=== PATIENT | female | born 1950 | race Caucasian/White ===

== ENCOUNTER 2016-07-24 09:09 | Emergency (ER) | payer MEDICARE, OTHER ==
[~2016-07-24] VITALS: Ht 167.6 cm; Wt 90.7 kg
[~2016-07-24 09:09] MED LIST: ERYT1OIN6 EACHEYE
[2016-07-24] MEDS ORDERED: NAPROXEN 500 MG TABLET PO STA (10:01)
--- NOTE | 2016-07-24 10:02 | RAD ---
Left ankle and left foot radiographs History: Pain from fall today, swelling. Comparison: None. Findings: AP, lateral, and oblique views of the left ankle. Lateral ankle soft tissue swelling is seen. There is a vague, obliquely oriented lucency involving the lateral malleolus, suggesting nondisplaced fracture. Ankle mortise is preserved. Large Achilles tendon insertional enthesophyte is seen. Small plantar calcaneal enthesophyte is present. AP, lateral, and oblique views of the left foot. Acute, slightly displaced obliquely oriented fracture seen involving the medial aspect of the fifth proximal phalanx with intra-articular extent. Mildly comminuted, obliquely oriented, nondisplaced fractures are seen involving the proximal third and fourth metatarsal shafts as well as the base of the third metatarsal extending into the proximal shaft. Mild first MTP degeneration is seen. The dorsal mid foot degeneration is present. Impression: 1. Acute, nondisplaced fracture of the lateral malleolus. 2. Acute fractures of the second through fourth metatarsals and fifth proximal phalanx.
--- NOTE | 2016-07-24 11:16 | PHYS DOC ---
Past Medical History Past Medical History: Constipation, High Cholesterol, Hypothyroid, IBS, Other Additional Past Medical Histor: barrets esophagus Past Surgical History: Tonsillectomy Alcohol Use: None Drug Use: None Adult General Chief Complaint Chief Complaint: ANKLE PROBLEM HPI HPI Patient is a 66 year old female with history of high cholesterol constipation and IBS who presents today with left foot and left ankle pain after falling today. Patient states she was walking down steps when she missed 2 steps and fell. Patient denies any loss of consciousness. Review of Systems Review of Systems Constitutional: Denies fever or chills [] Eyes: Denies change in visual acuity, redness, or eye pain [] Musculoskeletal: Left foot and ankle pain Integument: Denies rash or skin lesions [] Neurologic: Denies headache, focal weakness or sensory changes [] Endocrine: Denies polyuria or polydipsia [] Current Medications Current Medications Current Medications Medications (Trade) Dose Ordered Sig/Saritha Start Time Stop Time Status Last Admin Dose Admin Naproxen (Naprosyn) 500 mg 1X STAT 07/24/16 10:01 07/24/16 10:02 DC 07/24/16 10:07 500 MG Allergies Allergies Allergies Coded Allergies Type Severity Reaction Last Updated Verified No Known Drug Allergies 04/20/16 No Physical Exam Physical Exam Constitutional: Well developed, well nourished, no acute distress, non-toxic appearance. [] HENT: Normocephalic, atraumatic, bilateral external ears normal, oropharynx moist, no oral exudates, nose normal. [] Skin: Warm, dry, no erythema, no rash. [] Back: No tenderness, no CVA tenderness. [] Extremities: Left ankle and foot with mild amount of soft tissue swelling. Tenderness on palpation of the left lateral ankle as well as the top of the left foot. Slight pain to palpation of the base of the fifth metatarsal of the left foot. No navicular pain on the left foot. Limited range of motion to the left falls due to pain. Limited range of motion to the left ankle due to pain. + 2 left pedal pulse. Cap refill less than 2 seconds and left lower extremity. Sensation intact left lower extremity. Neurologic: Alert and oriented X 3, normal motor function, normal sensory function, no focal deficits noted. [] Psychologic: Affect normal, judgement normal, mood normal. [] Current Patient Data Vital Signs Vital Signs Date Time Temp Pulse Resp B/P Pulse Ox O2 Delivery O2 Flow Rate FiO2 07/24/16 09:23 98.2 78 20 139/68 98 Room Air 98.2 EKG EKG [] Radiology/Procedures Radiology/Procedures []PROCEDURE: ANKLE LEFT 3V; FOOT LEFT 3V Left ankle and left foot radiographs History: Pain from fall today, swelling. Comparison: None. Findings: AP, lateral, and oblique views of the left ankle. Lateral ankle soft tissue swelling is seen. There is a vague, obliquely oriented lucency involving the lateral malleolus, suggesting nondisplaced fracture. Ankle mortise is preserved. Large Achilles tendon insertional enthesophyte is seen. Small plantar calcaneal enthesophyte is present. AP, lateral, and oblique views of the left foot. Acute, slightly displaced obliquely oriented fracture seen involving the medial aspect of the fifth proximal phalanx with intra-articular extent. Mildly comminuted, obliquely oriented, nondisplaced fractures are seen involving the proximal third and fourth metatarsal shafts as well as the base of the third metatarsal extending into the proximal shaft. Mild first MTP degeneration is seen. The dorsal mid foot degeneration is present. Impression: 1. Acute, nondisplaced fracture of the lateral malleolus. 2. Acute fractures of the second through fourth metatarsals and fifth proximal phalanx. DICTATED and SIGNED BY: YUNIER VUONG MD DATE: 07/24/16 0955 CC: GREG ROLAND APRN; NON,STAFF; EZE DEL REAL ~ Course & Med Decision Making Course & Med Decision Making Pertinent Labs and Imaging studies reviewed. (See chart for details) Patient is in the ED with left foot and left ankle pain after falling. Left ankle and foot x-rays interpreted by radiologist was noted for an acute nondisplaced fractures of the lateral malleolus as well as acute fracture of the second through fourth metatarsal and fifth proximal phalanx. Consulted with Teodora for , she requested patient be placed in a posterior leg splint, she requested patient not to be on any blood thinners including ibuprofen. She requested patient to follow up with the office. Patient was placed in a posterior leg splint and the radiologic technologist, neurovascular exam done by me is normal, cap refill less than 2 seconds. Ice elevation encouraged. Instructed to call orthopedic doctor today. Dragon Disclaimer Laura Disclaimer This electronic medical record was generated, in whole or in part, using a voice recognition dictation system. Departure Departure Impression: Primary Impression: Fall down steps Additional Impressions: Fx lateral malleolus-closed Metatarsal stress fracture of left foot Disposition: 01 HOME, SELF-CARE Condition: STABLE Referrals: EZE DEL REAL (PCP) ANI DANGELO MD Follow-up with the orthopedic doctor by calling his office today Patient Instructions: Ankle Fracture, Foot Fracture Additional Instructions: You were seen for fractures of the left foot and ankle. Please ice and elevate the extremity. Please call the orthopedic doctor provided today and get a follow -up appointment. Scripts Hydrocodone/Apap 5-325 (Anson 5-325 Tablet)1 Each Tablet1-2 Tab PO Q4-6HRS #20 TAB Prov:GREG ROLAND APRN 07/24/16 Problem Qualifiers Primary Impression: Fall down steps Encounter type: initial encounter Qualified Code: W10.8XXA - Fall (on) (from ) other stairs and steps, initial encounter Additional Impressions: Fx lateral malleolus-closed Encounter type: initial encounter Fracture alignment: nondisplaced Laterality: left Qualified Code: S82.65XA - Nondisplaced fracture of lateral malleolus of left fibula, initial encounter for closed fracture Metatarsal stress fracture of left foot Encounter type: initial encounter Qualified Code: M84.375A - Stress fracture , left foot, initial encounter for fracture GREG ROLAND APRN Jul 24, 2016 11:16
[2016-07-24] MEDS ORDERED: HYDR-971 PO (11:37)
[2016-07-24 11:55] VITALS: BP 162/83
== END 2016-07-24 12:04 | disposition home or self-care (01) ==
LOC: ER 09:09
DX: S82.65XA Nondisplaced fracture of lateral malleolus of left fibula, initial encounter for closed fracture (principal); M84.375A Stress fracture, left foot, initial encounter for fracture; E78.00 Pure hypercholesterolemia, unspecified; E03.9 Hypothyroidism, unspecified; W10.9XXA Fall (on) (from) unspecified stairs and steps, initial encounter; Y93.89 Activity, other specified; Y92.89 Other specified places as the place of occurrence of the external cause; Y99.8 Other external cause status
CPT/HCPCS: 29515; 73610; 73630; 99284-25

== ENCOUNTER 2018-06-30 20:44 | Emergency (ER) | payer MEDICARE, OTHER ==
[~2018-06-30] VITALS: Ht 170.2 cm; Wt 90.7 kg
[~2018-06-30 20:44] MED LIST changes: +HYDR-3164 PO
[2018-06-30 21:31] LABS: BASO % 1 % (0-3); EOS # 0.2 x10^3/uL (0.0-0.7); EOS % 2 % (0-3); HEMATOCRIT 44.3 % (36.0-47.0); HEMOGLOBIN 14.8 g/dL (12.0-15.5); LYMPH # 2.9 x10^3/uL (1.0-4.8); LYMPH % 30 % (24-48); MEAN CORPUSCULAR HEMOGLOBIN 31 pg (25-35); MEAN CORPUSCULAR HGB CONC 33 g/dL (31-37); MEAN CORPUSCULAR VOLUME 92 fL (79-100); MONO % 11 % (0-9); NEUT # 5.5 x10^3uL (1.8-7.7); NEUT % 57 % (31-73); PLATELET COUNT 246 x10^3/uL (140-400); RED BLOOD COUNT 4.84 x10^6/uL (3.50-5.40); RED CELL DISTRIBUTION WIDTH 13.7 % (11.5-14.5); WHITE BLOOD COUNT 9.7 x10^3/uL (4.0-11.0)
[2018-06-30 21:40] LABS: PROTHROMBIN TIME PATIENT 12.1 SEC (11.7-14.0)
[2018-06-30 21:43] LABS: CALCIUM 9.5 mg/dL (8.5-10.1); CREATININE 0.9 mg/dL (0.6-1.0); GFR 61.9; POTASSIUM 3.9 mmol/L (3.5-5.1)
[2018-06-30 21:48] LABS: ALBUMIN 3.5 g/dL (3.4-5.0); ALBUMIN/GLOBULIN RATIO 0.7 (1.0-1.7); MAGNESIUM 2.2 mg/dL (1.8-2.4); TOTAL BILIRUBIN 0.4 mg/dL (0.2-1.0); TOTAL PROTEIN 8.5 g/dL (6.4-8.2)
[2018-06-30 21:56] LABS: CREATINE KINASE 71 U/L (26-192)
[2018-06-30] MEDS ORDERED: ASPIRIN 325 MG TABLET PO ONE (22:00)
--- NOTE | 2018-06-30 22:26 | RAD ---
PROCEDURE: CHEST PA LATERAL CLINICAL INDICATION: PALPITATIONS, CHEST PAIN COMPARISON: None FINDINGS: No pneumothorax identified. Cardiac and mediastinal contours unremarkable. No pulmonary consolidation or acute airspace disease. No acute osseous abnormalities identified. IMPRESSION: No pulmonary consolidation or acute airspace disease. Electronically signed by: Mat Myles DO (06/30/2018 10:24 PM) [facility]
--- NOTE | 2018-06-30 22:57 | PHYS DOC ---
Past Medical History Past Medical History: Constipation, High Cholesterol, Hypothyroid, IBS, Other Additional Past Medical Histor: barrets esophagus Past Surgical History: Tonsillectomy Alcohol Use: None Drug Use: None Adult General Chief Complaint Chief Complaint: Palpitations HPI HPI Patient is a 68 year old [f__sex] who presents with [] Review of Systems Review of Systems Constitutional: Denies fever or chills [] Eyes: Denies change in visual acuity, redness, or eye pain [] HENT: Denies nasal congestion or sore throat [] Respiratory: Denies cough or shortness of breath [] Cardiovascular: No additional information not addressed in HPI [] GI: Denies abdominal pain, nausea, vomiting, bloody stools or diarrhea [] : Denies dysuria or hematuria [] Musculoskeletal: Denies back pain or joint pain [] Integument: Denies rash or skin lesions [] Neurologic: Denies headache, focal weakness or sensory changes [] Endocrine: Denies polyuria or polydipsia [] All other systems were reviewed and found to be within normal limits, except as documented in this note. Current Medications Current Medications Current Medications Medications (Trade) Dose Ordered Sig/Saritha Start Time Stop Time Status Last Admin Dose Admin Aspirin (Charlie Aspirin) 325 mg 1X ONCE 06/30/18 22:00 06/30/18 22:01 DC 06/30/18 21:43 325 MG Allergies Allergies Allergies Coded Allergies Type Severity Reaction Last Updated Verified No Known Drug Allergies 04/20/16 No Physical Exam Physical Exam Constitutional: Well developed, well nourished, no acute distress, non-toxic appearance. [] HENT: Normocephalic, atraumatic, bilateral external ears normal, oropharynx moist, no oral exudates, nose normal. [] Eyes: PERRLA, EOMI, conjunctiva normal, no discharge. [] Neck: Normal range of motion, no tenderness, supple, no stridor. [] Cardiovascular:Heart rate regular rhythm, no murmur [] Lungs & Thorax: Bilateral breath sounds clear to auscultation [] Abdomen: Bowel sounds normal, soft, no tenderness, no masses, no pulsatile masses. [] Skin: Warm, dry, no erythema, no rash. [] Back: No tenderness, no CVA tenderness. [] Extremities: No tenderness, no cyanosis, no clubbing, ROM intact, no edema. [] Neurologic: Alert and oriented X 3, normal motor function, normal sensory function, no focal deficits noted. [] Psychologic: Affect normal, judgement normal, mood normal. [] Current Patient Data Vital Signs Vital Signs Date Time Temp Pulse Resp B/P (MAP) Pulse Ox O2 Delivery O2 Flow Rate FiO2 06/30/18 23:00 88 20 146/68 (94) 98 Room Air 06/30/18 20:44 98.0 98.0 Lab Values Laboratory Tests Test 06/30/18 21:00 White Blood Count 9.7 x10^3/uL (4.0-11.0) Red Blood Count 4.84 x10^6/uL (3.50-5.40) Hemoglobin 14.8 g/dL (12.0-15.5) Hematocrit 44.3 % (36.0-47.0) Mean Corpuscular Volume 92 fL (79-100) Mean Corpuscular Hemoglobin 31 pg (25-35) Mean Corpuscular Hemoglobin Concent 33 g/dL (31-37) Red Cell Distribution Width 13.7 % (11.5-14.5) Platelet Count 246 x10^3/uL (140-400) Neutrophils (%) (Auto) 57 % (31-73) Lymphocytes (%) (Auto) 30 % (24-48) Monocytes (%) (Auto) 11 % (0-9) H Eosinophils (%) (Auto) 2 % (0-3) Basophils (%) (Auto) 1 % (0-3) Neutrophils # (Auto) 5.5 x10^3uL (1.8-7.7) Lymphocytes # (Auto) 2.9 x10^3/uL (1.0-4.8) Monocytes # (Auto) 1.0 x10^3/uL (0.0-1.1) Eosinophils # (Auto) 0.2 x10^3/uL (0.0-0.7) Basophils # (Auto) 0.0 x10^3/uL (0.0-0.2) Prothrombin Time 12.1 SEC (11.7-14.0) Prothrombin Time INR 0.9 (0.8-1.1) PTT 26 SEC (24-38) Sodium Level 141 mmol/L (136-145) Potassium Level 3.9 mmol/L (3.5-5.1) Chloride Level 103 mmol/L (98-107) Carbon Dioxide Level 26 mmol/L (21-32) Anion Gap 12 (6-14) Blood Urea Nitrogen 16 mg/dL (7-20) Creatinine 0.9 mg/dL (0.6-1.0) Estimated GFR (Cockcroft-Gault) 61.9 BUN/Creatinine Ratio 18 (6-20) Glucose Level 110 mg/dL (70-99) H Calcium Level 9.5 mg/dL (8.5-10.1) Magnesium Level 2.2 mg/dL (1.8-2.4) Total Bilirubin 0.4 mg/dL (0.2-1.0) Aspartate Amino Transferase (AST) 26 U/L (15-37) Alanine Aminotransferase (ALT) 27 U/L (14-59) Alkaline Phosphatase 126 U/L (46-116) H Creatine Kinase 71 U/L (26-192) Creatine Kinase MB (Mass) 1.5 ng/mL (0.0-3.6) Creatine Kinase MB Relative Index % (0-4) Troponin I Quantitative < 0.017 ng/mL (0.000-0.055) RT-Vfc-L-Type Natriuretic Peptide 34 pg/mL (0-124) Total Protein 8.5 g/dL (6.4-8.2) H Albumin 3.5 g/dL (3.4-5.0) Albumin/Globulin Ratio 0.7 (1.0-1.7) L Lipase 230 U/L (73-393) Laboratory Tests 06/30/18 21:00 Laboratory Tests 06/30/18 21:00 EKG EKG @2052 Sinus tachycardia at 141bpm, NO ST elevation, wandering baseline to II Radiology/Procedures Radiology/Procedures [] Course & Med Decision Making Course & Med Decision Making Pertinent Labs and Imaging studies reviewed. (See chart for details) [] Dragon Disclaimer Dragon Disclaimer This electronic medical record was generated, in whole or in part, using a voice recognition dictation system. Departure Departure Impression: Primary Impression: Palpitations Disposition: 01 HOME, SELF-CARE Condition: STABLE Referrals: EZE DEL REAL (PCP) FRANCISCO HAYS MD Patient Instructions: Palpitations, Jint-sn-Meax DRAKE,YUNIER Ochoa DO Jun 30, 2018 22:57
[2018-06-30 23:00] VITALS: BP 146/68
--- NOTE | 2018-07-01 07:55 | EKG ---
[facility] [address] [place] [address] Test Date: 2018-06-30 Test Time: 20:52:56 Pat Name: BERNARD GALVEZ Department: Room: Gender: F Primary Care Nurse: : 1950 Requested By: YUNIER DRAKE Order Number: [id number] Reading MD: Ty Han MD Measurements Intervals [place] Rate: 140 P: 116 MT: 122 QRS: -12 QRSD: 78 T: 169 QT: 274 QTc: 421 Interpretive Statements PROBABLE ATRIAL FIBRILLATION WITH RVR NON-SPECIFIC ST/T CHANGES Electronically Signed On 07-02-2018 9:33:15 CDT by Ty Han MD
== END 2018-06-30 23:11 | disposition home or self-care (01) ==
LOC: ER 20:44
DX: R00.2 Palpitations (principal); E78.00 Pure hypercholesterolemia, unspecified; E03.9 Hypothyroidism, unspecified; K58.9 Irritable bowel syndrome, unspecified; Z79.82 Long term (current) use of aspirin
CPT/HCPCS: 36415; 71046; 80053; 82553; 83690; 83735; 83880; 84484; 85025; 85610; 85730; 93005; 99284-25

== ENCOUNTER → 2018-09-14 | Outpatient (CLI) | payer MEDICARE, OTHER ==
--- NOTE | 2018-09-14 13:13 | CARD ---
MR#: [id number] Date of Study: 09/14/2018 Ordering Physician: FRANCISCO HAYS, Referring Physician: FRANCISCO HAYS, Tech: Mojgan Muse [facility] APPROVED REPORT EXAM: Two-dimensional and M-mode echocardiogram with Doppler and color Doppler. Other Information Quality : AverageHR: 64bpm Rhythm : NSRTechnically limited study due to body habitus. INDICATION Atrial Fibrillation 2D DIMENSIONS RVDd2.5 (2.9-3.5cm)Left Atrium(2D)4.0 (1.6-4.0cm) IVSd0.7 (0.7-1.1cm)Aortic Root(2D)2.8 (2.0-3.7cm) LVDd4.7 (3.9-5.9cm)LVOT Diameter2.0 (1.8-2.4cm) PWd0.7 (0.7-1.1cm)LVDs3.4 (2.5-4.0cm) FS (%) 26.1 %SV51.4 ml LVEF(%)51.2 (>50%) M-Mode DIMENSIONS Left Atrium(MM)4.23 (2.5-4.0cm)Aortic Root3.18 (2.2-3.7cm) Aortic Valve AoV Peak Donnell.102.6cm/sAoV VTI24.3cm AO Peak GR.4.2mmHgLVOT Peak Donnell.121.0cm/s AO Mean GR.2mmHgAVA (VMAX)3.65cm2 ANETA (VTI)3.50cm2 Mitral Valve MV E Xhjphvht94.1cm/sMV DECEL CEPM226ju MV A Xkjlhlnq80.0cm/sE/A Ratio0.9 Pulmonary Valve PV Peak Lymmzrxa58.9cm/s Tricuspid Valve TR P. Gieszuxk571zd/sRAP FTBZGZUL9vjAn TR Peak Gr.98jwEdFRDJ66zsSd LEFT VENTRICLE The left ventricle is normal size. There is normal left ventricular wall thickness. Left ventricle sy stolic function is low normal. The Ejection Fraction is 50-55%. Septal motion consistent with conduct ion abnormality. Transmitral Doppler flow pattern is Grade II-pseudonormal filling dynamics. RIGHT VENTRICLE The right ventricle is normal size. There is normal right ventricular wall thickness. The right ventr icular systolic function is normal. ATRIA The left atrium is mildly dilated. The right atrium size is normal. The interatrial septum is intact with no evidence for an atrial septal defect or patent foramen ovale as noted on 2-D or Doppler imagi ng. AORTIC VALVE The aortic valve is normal in structure and function. The aortic valve is trileaflet. Doppler and Col or Flow revealed no significant aortic regurgitation. There is no significant aortic valvular stenosi s. MITRAL VALVE The mitral valve is thickened but opens well. There is no evidence of mitral valve prolapse. There is no mitral valve stenosis. Doppler and Color-flow revealed trace mitral regurgitation. TRICUSPID VALVE The tricuspid valve is normal in structure and function. Doppler and Color Flow revealed trace tricus pid regurgitation. There is mild pulmonary hypertension. The PA pressure was estimated at 34 mmHg. Th ere is no tricuspid valve prolapse or vegetation. There is no tricuspid valve stenosis. PULMONIC VALVE The pulmonic valve is not well visualized. GREAT VESSELS The aortic root is normal in size. The ascending aorta is normal in size. The IVC is normal in size a nd collapses >50% with inspiration. PERICARDIAL EFFUSION There is no evidence of significant pericardial effusion. Critical Notification Critical Value: No <Conclusion> Left ventricle systolic function is low normal. The Ejection Fraction is 50-55%. Septal motion consistent with conduction abnormality. Signed by : Francisco Hays, Electronically Approved : 09/14/2018 13:12:53
--- NOTE | 2018-09-14 13:23 | RAD ---
MR#: [id number] Date of Study: 09/14/2018 Ordering Physician: FRANCISCO HAYS, Referring Physician: JOY HORAN Tech: RT Daiana (R) (N) APPROVED REPORT Test Type: Exercise Stress Nurse/Tech: Kelly Corado R.N. Test Indications: PAT Cardiac History: Family history, a fib Medications: See Electronic Medical Record Medical History: See Electronic Medical Record Resting ECG: NSR Resting Heart Rate: 76 bpm Resting Blood Pressure: 145/64mmHg Pretest Chest Pain: No chest pain Nurse/Tech Notes S1S2, lungs sound clear Consent: The procedure was explained to the patient in lay terms. Informed consent was witnessed. Jean Marie eout was entered into [employer]. History and Stress Test performed by Kelly Corado R.N. Stress Symptoms Claudication POST EXERCISE Reason for Termination: Reached target heart rate Target HR: 127 Max HR: 135 bpm Exercise duration: 5 min. min:sec, 2 Stage Max Blood Pressure: 153/61mmHg Blood Pressure response to exercise: Normal blood pressure response during stress. Chest Pain: No. Arrhythmia: No. ST Change: Yes. INTERPRETATION Stress EKG Conclusion: Non-specific ST/T changes. No significant ischemia Rest: Stress: Viability: Radiopharm.Tc99m BchdkdywlMt24h Sestamibi Dose10.8mCi 30.9mCi Duration 15min. 15min. Img Date 09/14/2018 09/14/2018 Inj-Img Atwv18uzp. 60min. Rest Admin Site:IV - Right AntecubitalAdministrator:RT Bry (R)(N) Stress Admin Site: IV - Right AntecubitalAdministrator: RT Bry (R)(N) STRESS DATA End Diast. Vol.66.0mlLVEDV index BSA33.0ml End Syst. Vol.18.0mlLVESV index BSA9.0ml Myocardial Whem962.0gEject. Zejpgfli75.0% Stress Scores Regional WT0.00Summed WT2.00 Regional WM0.00Summed WM9.00 LV Perfusion Normal perfusion at stress. Wall Motion Normal wall motion. EF 70% LV Perf. Quant 17 Seg. SSS2.00 17 Seg. SRS2.00 17 Seg. SDS1.00 Stress Defect Extent (% LAD)0.00Rest Defect Extent (% LAD)1.90Rev. Defect Extent (% LAD)0.00 Stress Defect Extent (% LCX) 17.50Rest Defect Extent (% LCX)7.50Rev. Defect Extent (% LCX)13.80 Stress Defect Extent (% RCA)0.00Rest Defect Extent (% RCA)0.00Rev. Defect Extent (% RCA)0.00 Stress Defect Extent (% ANNA)6.30Rest Defect Extent (% ANNA)3.70Rev. Defect Extent (% ANNA)4.30 Other Information Quality:Fair Risk Assessment: Low Risk Conclusion 1. Non-specific ST/T changes without acute ischemic findings. Average exercise capacity at 7.0 Mets 2. Normal perfusion at stress. Rest images not performed. 3. Normal EF at > 70% 4. Low risk study 5. Motion artifact noted. Signed by : Francisco Hays, Electronically Approved : 09/14/2018 13:22:49
== END | disposition home or self-care (01) ==
LOC: NM 08:26
PROVIDERS: ATTEND Internal Medicine Cardiovascular Disease
DX: I27.20 Pulmonary hypertension, unspecified (principal); I48.0 Paroxysmal atrial fibrillation; I10 Essential (primary) hypertension; E11.9 Type 2 diabetes mellitus without complications; F17.200 Nicotine dependence, unspecified, uncomplicated; Z95.0 Presence of cardiac pacemaker; Z79.01 Long term (current) use of anticoagulants
CPT/HCPCS: 78452; 93017; 93306; A9500; 96376

== ENCOUNTER → 2020-06-29 | Outpatient (CLI) | payer MEDICARE, OTHER ==
--- NOTE | 2020-06-29 12:49 | CARD ---
MR#: [id number] Date of Study: 06/29/2020 Ordering Physician: FRANCISCO HAYS, Referring Physician: FRANCISCO HAYS, Tech: Tamara Solis [facility] APPROVED REPORT EXAM: Two-dimensional and M-mode echocardiogram with Doppler and color Doppler. Other Information Quality : GoodHR: 66bpm Rhythm : NSR INDICATION Atrial Fibrillation RISK FACTORS Hypertension Obesity Hyperlipidemia 2D DIMENSIONS RVDd3.1 (2.9-3.5cm)Left Atrium(2D)3.9 (1.6-4.0cm) IVSd0.7 (0.7-1.1cm)Aortic Root(2D)3.1 (2.0-3.7cm) LVDd4.5 (3.9-5.9cm)LVOT Diameter2.1 (1.8-2.4cm) PWd0.8 (0.7-1.1cm)LVDs2.6 (2.5-4.0cm) FS (%) 41.8 %SV66.0 ml LVEF(%)72.9 (>50%) Aortic Valve AoV Peak Donnell.125.0cm/sAoV VTI30.7cm AO Peak GR.6.3mmHgLVOT Peak Donnell.84.7cm/s AO Mean GR.3mmHgAVA (VMAX)2.40cm2 Mitral Valve MV E Dteemjiu69.9cm/sMV DECEL [id number] MV A Iftqxvoh34.6cm/sE/A Ratio0.7 Pulmonary Valve PV Peak Bmdtvwhi62.5cm/s Tricuspid Valve TR P. Jgroxtqf875ql/sTR Peak Gr.14mmHg LEFT VENTRICLE The left ventricle is normal size. There is normal left ventricular wall thickness. The left ventricu lar systolic function is normal and the ejection fraction is within normal range. Estimated ejection fraction 55-60%. There is normal LV segmental wall motion. Transmitral Doppler flow pattern is Grade I-abnormal relaxation pattern. RIGHT VENTRICLE The right ventricle is normal size. There is normal right ventricular wall thickness. The right ventr icular systolic function is normal. ATRIA The left atrium size is normal. The right atrium size is normal. The interatrial septum is intact wit h no evidence for an atrial septal defect or patent foramen ovale as noted on 2-D or Doppler imaging. AORTIC VALVE The aortic valve is normal in structure and function. Doppler and Color Flow revealed no significant aortic regurgitation. There is no significant aortic valvular stenosis. MITRAL VALVE The mitral valve is normal in structure and function. A mild mitral valve prolapse is present. There is no mitral valve stenosis. Doppler and Color-flow revealed mild mitral regurgitation. TRICUSPID VALVE The tricuspid valve is normal in structure and function. Doppler and Color Flow revealed trace tricus pid regurgitation. Estimated PAP 18 mmHg. There is no tricuspid valve prolapse or vegetation. PULMONIC VALVE Doppler and Color Flow revealed no pulmonic valvular regurgitation. There is no pulmonic valvular ale nosis. GREAT VESSELS The aortic root is normal in size. The ascending aorta is normal in size. The IVC is normal in size a nd collapses >50% with inspiration. PERICARDIAL EFFUSION There is no evidence of significant pericardial effusion. Critical Notification Critical Value: No <Conclusion> The left ventricular systolic function is normal and the ejection fraction is within normal range. E stimated ejection fraction 55-60%. There is normal LV segmental wall motion. Signed by : Francisco Hays, Electronically Approved : 06/29/2020 12:48:45
== END ==
LOC: ECHO 09:10
PROVIDERS: ATTEND Internal Medicine Cardiovascular Disease
DX: I34.0 Nonrheumatic mitral (valve) insufficiency (principal); I10 Essential (primary) hypertension
CPT/HCPCS: 93306